=== PATIENT | female | born 1975 | race African-American/Black ===

== ENCOUNTER 2018-03-16 07:05 | Emergency (ER) | payer MEDICAID ==
[~2018-03-16] VITALS: Ht 162.6 cm; Wt 138.0 kg
[~2018-03-16 07:05] MED LIST: BUPR75TA3; HYDR12.529; METR500T; ZOLP5TAB2
[2018-03-16] MEDS ORDERED: MORPHINE SULFATE 4 MG/ML CPJ (NOT FOR IM USE) IV STA (08:26)
[2018-03-16] MEDS ORDERED: ONDANSETRON HCL 4MG/2ML VIAL IV STA (08:26)
[2018-03-16] MEDS ORDERED: ASPIRIN 81MG TABLET PO ONE (08:30)
[2018-03-16 08:51] LABS: BASOPHILS % 0.7 % (0.0-2.0); EOSINOPHILS % 1.4 % (0.0-5.0); HEMOGLOBIN. 11.5 g/dL (12.0-16.0); LYMPHOCYTES % 24.9 % (20.0-50.0); MEAN CORPUSCULAR HEMOGLOBIN 26.1 pg (28.0-32.0); MEAN CORPUSCULAR VOLUME 79.6 fL (81.0-99.0); MEAN PLATELET VOLUME 10.3 fl (7.4-10.4); MONOCYTES % 5.2 % (2.0-8.0); NEUTROPHILS % 67.8 % (40.0-76.0); PLATELET 231 x1000/uL (130-400)
[2018-03-16 08:56] LABS: CHLORIDE 104 mEq/L (98-107)
[2018-03-16 09:01] LABS: D-DIMER 0.26 mg/L FEU (<0.50); PROTHROMBIN TIME 10.6 sec (9.4-11.6)
[2018-03-16 09:08] LABS: HCG SCREEN NEGATIVE
[2018-03-16] MEDS ORDERED: IBUPROFEN 400MG TABLET PO ONE (12:00)
[2018-03-16 12:30] VITALS: BP 144/76
== END 2018-03-16 13:02 | disposition home or self-care (01) ==
LOC: ER 07:05
DX: R07.89 Other chest pain (principal); J45.909 Unspecified asthma, uncomplicated; I10 Essential (primary) hypertension; Z79.82 Long term (current) use of aspirin
CPT/HCPCS: 36415; 71045; 80053; 83880; 84484; 84703; 85025; 85379; 85610; 93005; 96374; 96375; 99285; J2270; J2405

== ENCOUNTER 2018-09-26 09:40 | Emergency (ER) | payer OTHER, MEDICAID ==
[~2018-09-26] VITALS: Ht 160 cm; Wt 114.0 kg
[2018-09-26] MEDS ORDERED: ALBUTEROL (0.5%) 2.5MG/0.5ML NEB HHN ONE ×2 (13:45→14:24)
[2018-09-26] MEDS ORDERED: IPRATROPIUM BROMIDE (0.02%) 0.5MG/2.5ML NEB HHN ONE (13:45)
[2018-09-26] MEDS ORDERED: PREDNISONE 20MG TABLET PO ONE (13:45)
[2018-09-26] MEDS ORDERED: IPRATROPIUM BROMIDE (0.02%) 0.5MG/2.5ML NEB ONE (14:24)
[2018-09-26 17:44] VITALS: BP 162/69
== END 2018-09-26 17:47 | disposition home or self-care (01) ==
LOC: ER 11:47
DX: J45.901 Unspecified asthma with (acute) exacerbation (principal); J06.9 Acute upper respiratory infection, unspecified
CPT/HCPCS: 71045; 81025; 93005; 94640; 99283; J7512; J7611

== ENCOUNTER 2020-06-25 08:12 | Emergency (ER) | payer OTHER, MEDICAID ==
[~2020-06-25] VITALS: Ht 162.6 cm; Wt 145.0 kg
[2020-06-25] MEDS ORDERED: ASPI-864 PO (08:23)
[2020-06-25] MEDS ORDERED: SODIUM CHLORIDE 0.9% 1,000 ML IV ONE (09:30)
[2020-06-25 10:00] LABS: BASOPHILS % 0.7 % (0.0-2.0); HEMATOCRIT. 32.8 % (36.0-48.0); HEMOGLOBIN. 10.7 g/dL (12.0-16.0); LYMPHOCYTES % 20.2 % (20.0-50.0); MEAN CORPUSCULAR HEMOGLOBIN 27.3 pg (28.0-32.0); MEAN CORPUSCULAR VOLUME 83.3 fL (81.0-99.0); MEAN PLATELET VOLUME 11.6 fl (7.4-10.4); MONOCYTES % 5.8 % (2.0-8.0); NEUTROPHILS % 72.3 % (40.0-76.0); PLATELET 196 x1000/uL (130-400); RED BLOOD CELL COUNT 3.93 mill/uL (4.2-5.4); RED CELL DISTRIBUTION WIDTH 14.3 % (11.6-14.6)
[2020-06-25 10:08] LABS: PROTHROMBIN TIME 10.5 sec (9.6-11.0)
[2020-06-25 10:15] LABS: CHLORIDE 107 mEq/L (98-107)
[2020-06-25 10:26] LABS: B-HCG QUANTITATIVE < 1 mIU/mL (<3)
[2020-06-25 12:09] LABS: CLARITY URINE CLOUDY (CLEAR); KETONES URINE NEGATIVE (NEGATIVE); LEUKOCYTE ESTERASE URINE TRACE (NEGATIVE); NITRITE URINE NEGATIVE (NEGATIVE); OCCULT BLOOD URINE 3+ (NEGATIVE); PH URINE 6.5 (4.5-8.0); PROTEIN URINE 2+ (NEGATIVE); SPECIFIC GRAVITY URINE 1.011 (1.005-1.030); UROBILINOGEN URINE 0.2 E.U./dL (0.2-1.0)
[2020-06-25 12:12] LABS: COLOR URINE BLOODY (YELLOW)
[2020-06-25 13:00] VITALS: BP 149/73
== END 2020-06-25 14:00 | disposition home or self-care (01) ==
LOC: ER 08:12
DX: D25.9 Leiomyoma of uterus, unspecified (principal); N83.201 Unspecified ovarian cyst, right side; I10 Essential (primary) hypertension; J45.909 Unspecified asthma, uncomplicated
CPT/HCPCS: 36415; 76830; 76856; 80053; 81003; 81025; 84702; 85025; 85610; 86850; 86900; 86901; 93005; 96360; 96361; 99285; J7030

== ENCOUNTER 2023-12-06 10:15 | Emergency (ER) | payer MEDICARE, MEDICAID ==
[~2023-12-06] VITALS: Ht 162.6 cm; Wt 137.0 kg
[~2023-12-06 10:15] MED LIST changes: -BUPR75TA3; +FURO20TA4 PO; +GABA-532 PO; +HYDR100T26 PO; -HYDR12.529; +LOSA100T33 PO; -METR500T; +OMEP20CA14 PO; -ZOLP5TAB2
[2023-12-06] MEDS ORDERED: METHYLPREDNISOLONE SOD SUCC 125MG/2ML (ACT-O-VIAL) IM STA (11:26)
[2023-12-06] MEDS ORDERED: ALBUTEROL (0.083%) 2.5MG/3ML NEB HHN STA (11:26)
[2023-12-06] MEDS ORDERED: IPRATROPIUM BROMIDE (0.02%) 0.5MG/2.5ML NEB HHN STA (11:26)
[2023-12-06 12:11] LABS: HEMATOCRIT. 36.8 % (36.0-48.0); HEMOGLOBIN. 11.8 g/dL (12.0-16.0); MEAN CORPUSCULAR HEMOGLOBIN 28.2 pg (28.0-32.0); MEAN CORPUSCULAR HGB CONC 32.1 g/dL (31.0-37.0); MEAN PLATELET VOLUME 10.4 fl (7.4-10.4); PLATELET 178 x1000/uL (130-400); RED BLOOD CELL COUNT 4.19 mill/uL (4.2-5.4); RED CELL DISTRIBUTION WIDTH 14.5 % (11.6-14.6)
[2023-12-06 12:17] LABS: DIFFERENTIAL COMMENT 1
[2023-12-06 12:30] LABS: ALANINE AMINOTRANSFERASE 8 IU/L (10-49); ALBUMIN 4.5 g/dL (3.2-4.8); ASPARTATE AMINOTRANSFERASE 22 IU/L (<34); BILIRUBIN TOTAL 0.5 mg/dL (0.1-1.0); CALCIUM 8.6 mg/dL (8.7-10.4); CARBON DIOXIDE 27 mEq/L (21-32); CHLORIDE 107 mEq/L (98-107); CREATININE 0.8 mg/dL (0.6-1.0); GLUCOSE 83 mg/dL (70-105); POTASSIUM 3.9 mEq/L (3.5-5.1); PROTEIN TOTAL 7.5 g/dL (6.0-8.3); SODIUM 139 mEq/L (136-145); UREA NITROGEN BLOOD 6 mg/dL (9-23)
[2023-12-06 13:04] LABS: PLATELET ESTIMATE NORMAL
[2023-12-06] MEDS: ACETAMINOPHEN 325MG TABLET PO NR (15:25)
[2023-12-06 15:26] VITALS: PULSE 93; RESP 20; O2SAT 97
[2023-12-06] MEDS: IPRATROPIUM BROMIDE (0.02%) 0.5MG/2.5ML NEB HHN NR (15:26)
[2023-12-06] MEDS: METHYLPREDNISOLONE SOD SUCC 125MG/2ML (ACT-O-VIAL) IM NR (15:26)
[2023-12-06] MEDS: ALBUTEROL (0.083%) 2.5MG/3ML NEB HHN NR (15:26)
[2023-12-06 15:43] LABS: CLARITY URINE CLOUDY (CLEAR); COLOR URINE RED (YELLOW); GLUCOSE URINE NEGATIVE (NEGATIVE); KETONES URINE NEGATIVE (NEGATIVE); LEUKOCYTE ESTERASE URINE 1+ (NEGATIVE); NITRITE URINE NEGATIVE (NEGATIVE); OCCULT BLOOD URINE 3+ (NEGATIVE); PROTEIN URINE 1+ (NEGATIVE); SPECIFIC GRAVITY URINE 1.024 (1.005-1.030)
[2023-12-06 15:58] LABS: BACTERIA URINE NONE SEEN; RBC URINE 50-100 /hpf (0-2); SQUAMOUS EPITHELIAL CELL URINE 1+ /lpf (RARE/1+); WBC URINE 0-2 /hpf (0-2)
[2023-12-06] MEDS: KETOROLAC 30MG/ML VIAL IM STA (17:00)
[2023-12-06 17:31] VITALS: BP 153/75; PULSE 82; RESP 18; TEMP 99.2
[2023-12-06] MEDS ORDERED: D-ME473S50 PO (17:34)
[2023-12-06] MEDS ORDERED: NAPR-681 MT (17:34)
[2023-12-06] MEDS ORDERED: ALBU18HF2 IH (17:34)
[2023-12-06] MEDS ORDERED: AZIT250T12 MT (17:34)
== END 2023-12-06 17:44 | disposition home or self-care (01) ==
LOC: ER 10:15
DX: J20.9 Acute bronchitis, unspecified (principal); J45.909 Unspecified asthma, uncomplicated; I10 Essential (primary) hypertension; Z20.822 Contact with and (suspected) exposure to COVID-19; Z88.8 Allergy status to other drugs, medicaments and biological substances; Z79.899 Other long term (current) drug therapy; Z98.890 Other specified postprocedural states
CPT/HCPCS: 99284; 71045; 87426; 80053; 81003; 81025; 83880; 85025; 87804 ×2; 36415; 94640; 96372; J1885; J2930

== ENCOUNTER 2023-12-10 07:21 | Inpatient (IN) | payer MEDICARE, MEDICAID ==
[~2023-12-10] VITALS: Ht 162.6 cm; Wt 142.4 kg
[~2023-12-10 07:21] MED LIST changes: +ALBU18HF2 IH; +AZIT250T12 MT; +D-ME473S50 PO; +NAPR-681 MT
[2023-12-10 08:52] VITALS: PULSE 65; RESP 15; O2SAT 99
[2023-12-10] MEDS: ALBUTEROL (0.083%) 2.5MG/3ML NEB HHN STA (08:52)
[2023-12-10] MEDS: IPRATROPIUM BROMIDE (0.02%) 0.5MG/2.5ML NEB HHN STA (08:52)
[2023-12-10 09:05] LABS: BASOPHILS % 0.3 % (0.0-2.0); EOSINOPHILS % 2.1 % (0.0-5.0); HEMATOCRIT. 35.3 % (36.0-48.0); HEMOGLOBIN. 11.5 g/dL (12.0-16.0); LYMPHOCYTES % 16.8 % (20.0-50.0); MEAN CORPUSCULAR HEMOGLOBIN 28.2 pg (28.0-32.0); MEAN CORPUSCULAR HGB CONC 32.7 g/dL (31.0-37.0); MEAN CORPUSCULAR VOLUME 86.2 fL (81.0-99.0); MEAN PLATELET VOLUME 10.1 fl (7.4-10.4); MONOCYTES % 6.6 % (2.0-8.0); NEUTROPHILS % 74.2 % (40.0-76.0); PLATELET 223 x1000/uL (130-400); RED BLOOD CELL COUNT 4.09 mill/uL (4.2-5.4); RED CELL DISTRIBUTION WIDTH 14.6 % (11.6-14.6); WHITE BLOOD COUNT 10.1 x1000/uL (4.5-11.0)
[2023-12-10 09:24] LABS: ALANINE AMINOTRANSFERASE < 7 IU/L (10-49); ALBUMIN 4.2 g/dL (3.2-4.8); ASPARTATE AMINOTRANSFERASE 15 IU/L (<34); BILIRUBIN TOTAL 0.3 mg/dL (0.1-1.0); CALCIUM 8.1 mg/dL (8.7-10.4); CARBON DIOXIDE 26 mEq/L (21-32); CHLORIDE 109 mEq/L (98-107); CREATININE 0.8 mg/dL (0.6-1.0); GLUCOSE 103 mg/dL (70-105); POTASSIUM 3.4 mEq/L (3.5-5.1); PROTEIN TOTAL 7.2 g/dL (6.0-8.3); SODIUM 141 mEq/L (136-145); UREA NITROGEN BLOOD 9 mg/dL (9-23)
[2023-12-10] MEDS: PREDNISONE 20MG TABLET PO STA (09:30)
[2023-12-10 09:33] LABS: TROPONIN I HIGH SENSITIVITY 59 ng/L (3.0-34)
[2023-12-10 10:21] LABS: TROPONIN I HIGH SENSITIVITY 53 ng/L (3.0-34)
[2023-12-10] MEDS: CEFTRIAXONE 1GM/50ML 50 ML IV ONE (12:33)
[2023-12-10] MEDS: CEFTRIAXONE 1GM/50ML 50 ML IV NR (12:51)
[2023-12-10] MEDS ORDERED: ONDANSETRON HCL 4MG/2ML INJ IV PRN (14:00)
[2023-12-10] MEDS ORDERED: ACETAMINOPHEN 325MG TABLET PO PRN (14:00)
[2023-12-10] MEDS: AZITHROMYCIN 500 MG TABLET PO NR (15:13)
[2023-12-10] MEDS: POTASSIUM CHLORIDE 20MEQ TABLET SR PO NR (15:13)
[2023-12-10 16:49] LABS: CLARITY URINE CLEAR (CLEAR); COLOR URINE YELLOW (YELLOW); GLUCOSE URINE NEGATIVE (NEGATIVE); KETONES URINE NEGATIVE (NEGATIVE); LEUKOCYTE ESTERASE URINE NEGATIVE (NEGATIVE); NITRITE URINE NEGATIVE (NEGATIVE); OCCULT BLOOD URINE 2+ (NEGATIVE); PH URINE 6.5 (4.5-8.0); PROTEIN URINE NEGATIVE (NEGATIVE); SPECIFIC GRAVITY URINE 1.014 (1.005-1.030)
[2023-12-10 16:57] LABS: BACTERIA URINE NONE SEEN; SQUAMOUS EPITHELIAL CELL URINE 1+ /lpf (RARE/1+); WBC URINE 0-2 /hpf (0-2)
[2023-12-10 20:54] VITALS: PULSE 66; RESP 18; O2SAT 97
[2023-12-10] MEDS: IPRATROPIUM/ALBUTEROL 0.5-3(2.5)MG/3ML NEB HHN SCH (20:54)
[2023-12-11] VITALS (11 sets, daily range): BP systolic 134–165; BP diastolic 60–85; PULSE 52–71; RESP 18–20; TEMP 97.5–98.6; O2SAT 96–97
[2023-12-11] MEDS ORDERED: OMEPRAZOLE 20MG CAPSULE EXTENDED RELEASE PO SCH (02:15)
[2023-12-11] MEDS ORDERED: CARVEDILOL 12.5MG TABLET PO SCH (02:15)
[2023-12-11] MEDS ORDERED: HYDRALAZINE HCL 100MG TABLET PO PRN (02:15)
[2023-12-11] MEDS ORDERED: LOSARTAN 100 MG TABLET PO SCH (02:15)
[2023-12-11] MEDS: LOSARTAN 100 MG TABLET PO NR (03:43)
[2023-12-11] MEDS: CARVEDILOL 12.5MG TABLET PO SCH ×2 (03:43→09:17)
[2023-12-11] MEDS ORDERED: CEFTRIAXONE 1GM/50ML 50 ML IV SCH (07:00)
[2023-12-11] MEDS ORDERED: MELA5TAB21 MT (07:03)
[2023-12-11] MEDS ORDERED: ASPI81TA43 MT (07:03)
[2023-12-11] MEDS ORDERED: TRAZ-251 PO (07:03)
[2023-12-11] MEDS ORDERED: FLUT1BLS3 INH (07:03)
[2023-12-11] MEDS ORDERED: COR25 PO (07:03)
[2023-12-11] MEDS ORDERED: MIRA25TA PO (07:03)
[2023-12-11] MEDS ORDERED: BUSP30TA2 PO (07:03)
[2023-12-11] MEDS ORDERED: BENZ100C86 PO (07:03)
[2023-12-11] MEDS ORDERED: SERT100T PO (07:03)
[2023-12-11] MEDS ORDERED: B CM1TAB PO (07:03)
[2023-12-11 08:45] LABS: BASOPHILS % 0.4 % (0.0-2.0); EOSINOPHILS % 1.8 % (0.0-5.0); HEMOGLOBIN. 10.8 g/dL (12.0-16.0); LYMPHOCYTES % 28.7 % (20.0-50.0); MEAN CORPUSCULAR HEMOGLOBIN 28.5 pg (28.0-32.0); MEAN CORPUSCULAR HGB CONC 32.6 g/dL (31.0-37.0); MEAN CORPUSCULAR VOLUME 87.4 fL (81.0-99.0); MEAN PLATELET VOLUME 10.4 fl (7.4-10.4); MONOCYTES % 7.5 % (2.0-8.0); NEUTROPHILS % 61.6 % (40.0-76.0); PLATELET 203 x1000/uL (130-400); RED BLOOD CELL COUNT 3.78 mill/uL (4.2-5.4); RED CELL DISTRIBUTION WIDTH 14.7 % (11.6-14.6); WHITE BLOOD COUNT 9.1 x1000/uL (4.5-11.0)
[2023-12-11 08:48] LABS: CALCIUM 8.5 mg/dL (8.7-10.4); CARBON DIOXIDE 26 mEq/L (21-32); CHLORIDE 108 mEq/L (98-107); CREATININE 0.8 mg/dL (0.6-1.0); GLUCOSE 144 mg/dL (70-105); POTASSIUM 3.5 mEq/L (3.5-5.1); SODIUM 142 mEq/L (136-145); UREA NITROGEN BLOOD 11 mg/dL (9-23)
[2023-12-11] MEDS: OMEPRAZOLE 20MG CAPSULE EXTENDED RELEASE PO SCH (09:15)
[2023-12-11] MEDS: AZITHROMYCIN 250 MG TABLET PO SCH (09:15)
[2023-12-11] MEDS: LOSARTAN 100 MG TABLET PO SCH (09:16)
[2023-12-11] MEDS: HYDRALAZINE HCL 100MG TABLET PO SCH (09:17)
[2023-12-11] MEDS: CEFTRIAXONE 1GM/50ML 50 ML IV SCH (11:59)
[2023-12-12] VITALS (11 sets, daily range): BP systolic 131–166; BP diastolic 69–85; PULSE 54–84; RESP 18–22; TEMP 97.4–98.8; O2SAT 97
[2023-12-12] MEDS: SERTRALINE HCL 100MG TABLET PO SCH (11:07)
[2023-12-12] MEDS: BUSPIRONE HCL 10MG TABLET PO SCH (12:44)
[2023-12-12] MEDS ORDERED: IPRATROPIUM/ALBUTEROL 0.5-3(2.5)MG/3ML NEB HHN PRN (16:15)
[2023-12-12] MEDS: EPLERENONE 25 MG PO SCH (17:16)
[2023-12-12] MEDS: TRAZODONE HCL 50MG TABLET PO SCH (21:02)
[2023-12-12] MEDS: METHYLPREDNISOLONE SOD SUCC 125MG/2ML (ACT-O-VIAL) IV SCH (22:01)
[2023-12-13] VITALS (10 sets, daily range): BP systolic 125–176; BP diastolic 76–92; PULSE 65–89; RESP 4–24; TEMP 97.8–98.7; O2SAT 96–97
[2023-12-13] MEDS ORDERED: HYDRALAZINE HCL 10MG TABLET PO PRN (06:15)
[2023-12-13 06:18] LABS: BASOPHILS % 0.2 % (0.0-2.0); EOSINOPHILS % 0.1 % (0.0-5.0); HEMATOCRIT. 35.9 % (36.0-48.0); LYMPHOCYTES % 12.1 % (20.0-50.0); MEAN CORPUSCULAR HEMOGLOBIN 28.7 pg (28.0-32.0); MEAN CORPUSCULAR HGB CONC 33.4 g/dL (31.0-37.0); MEAN CORPUSCULAR VOLUME 86.1 fL (81.0-99.0); MEAN PLATELET VOLUME 9.9 fl (7.4-10.4); NEUTROPHILS % 86.6 % (40.0-76.0); PLATELET 275 x1000/uL (130-400); RED BLOOD CELL COUNT 4.16 mill/uL (4.2-5.4); RED CELL DISTRIBUTION WIDTH 14.4 % (11.6-14.6); WHITE BLOOD COUNT 10.1 x1000/uL (4.5-11.0)
[2023-12-13 06:38] LABS: CALCIUM 8.7 mg/dL (8.7-10.4); CARBON DIOXIDE 26 mEq/L (21-32); CHLORIDE 104 mEq/L (98-107); CREATININE 0.8 mg/dL (0.6-1.0); GLUCOSE 171 mg/dL (70-105); PHOSPHORUS 4.1 mg/dL (2.5-4.9); POTASSIUM 4.1 mEq/L (3.5-5.1); SODIUM 138 mEq/L (136-145); UREA NITROGEN BLOOD 8 mg/dL (9-23)
[2023-12-13 09:10] LABS: BG BASE EXCESS 1.3 mmol/L (-2.0-2.0); BG CARBOXYHEMOGLOBIN 0.3 % (0.5-1.5); BG DEOXYHEMOGLOBIN 4.1 % (0.0-5.0); BG FRACTION INSPIRED OXYGEN 28; BG HCO3 ACT 25.6 mmol/L (22.0-26.0); BG METHEMOGLOBIN 0.3 % (0.0-1.5); BG OXYGEN SATURATION 95.9 % (92.0-98.5); BG OXYHEMOGLOBIN 95.3 % (94.0-97.0); BG PCO2 39.3 mmHg (35.0-45.0); BG PH 7.431 (7.350-7.450); BG PO2 80.9 mmHg (75.0-100.0); BG SAMPLE SITE RIGHT BRACHIAL; BG TOTAL HEMOGLOBIN 13.1 g/dL (12.0-18.0); BG VENT MODE NASAL CANNULA
[2023-12-13] MEDS: FAMOTIDINE 20MG TABLET PO SCH (10:31)
[2023-12-13] MEDS: NIFEDIPINE XL 30MG TAB PO SCH (14:21)
[2023-12-13 18:19] LABS: BG CARBOXYHEMOGLOBIN 0.1 % (0.5-1.5); BG DEOXYHEMOGLOBIN 7.1 % (0.0-5.0); BG FRACTION INSPIRED OXYGEN 21; BG HCO3 ACT 26.5 mmol/L (22.0-26.0); BG METHEMOGLOBIN 0.2 % (0.0-1.5); BG OXYGEN SATURATION 92.9 % (92.0-98.5); BG OXYHEMOGLOBIN 92.6 % (94.0-97.0); BG PH 7.428 (7.350-7.450); BG PO2 66.7 mmHg (75.0-100.0); BG SAMPLE SITE LEFT BRACHIAL; BG TOTAL HEMOGLOBIN 13.1 g/dL (12.0-18.0); BG VENT MODE ROOM AIR
[2023-12-14] VITALS (11 sets, daily range): BP systolic 133–169; BP diastolic 67–86; PULSE 61–84; RESP 18–27; TEMP 97–98.7
[2023-12-15] VITALS (8 sets, daily range): BP systolic 124–139; BP diastolic 65–70; PULSE 68–95; RESP 16–20; TEMP 97–97.7; O2SAT 93
[2023-12-15] MEDS ORDERED: NIFE-33 PO (13:34)
[2023-12-15] MEDS ORDERED: P20 MT (13:34)
[2023-12-15] MEDS ORDERED: LEVO750T68 MT (13:35)
[2023-12-15] MEDS: HYDRALAZINE HCL 10MG TABLET PO PRN (15:01)
== END 2023-12-15 18:14 | disposition home or self-care (01) | DRG 193 ==
LOC: ER 07:21 → EDBEDREQ 08:51 → EDBEDREQTM 10:36 → EDBEDREQ 10:36 → 5WST 23:00 → 7WST 12-11 04:41
PROVIDERS: ADMIT Internal Medicine; ATTEND Internal Medicine
PROC: 5A09357 Assistance with Respiratory Ventilation, Less than 24 Consecutive Hours, Continuous Positive Airway Pressure (ICD-10-PCS; principal; 2023-12-14)
PROC: 5A09357 Assistance with Respiratory Ventilation, Less than 24 Consecutive Hours, Continuous Positive Airway Pressure (ICD-10-PCS; 2023-12-15)
DX: J18.9 Pneumonia, unspecified organism (principal); J96.00 Acute respiratory failure, unspecified whether with hypoxia or hypercapnia; I43 Cardiomyopathy in diseases classified elsewhere; E85.4 Organ-limited amyloidosis; Z68.43 Body mass index [BMI] 50.0-59.9, adult; I11.0 Hypertensive heart disease with heart failure; I50.9 Heart failure, unspecified; E66.9 Obesity, unspecified; E87.6 Hypokalemia; Z88.8 Allergy status to other drugs, medicaments and biological substances; Z79.899 Other long term (current) drug therapy
CPT/HCPCS: 36415; 36600; 71045; 80048; 80053; 81003; 82375; 82805; 83036; 83735; 83880; 84100; 84145; 84484; 85025; 85379; 93005; 94618; 94640; 94660; 99291; J0696; J2405; J2930; J7512

== ENCOUNTER 2024-07-31 09:56 | Emergency (ER) | payer MEDICARE, MEDICAID ==
[~2024-07-31] VITALS: Ht 162.6 cm; Wt 133.0 kg
[~2024-07-31 09:56] MED LIST changes: +ASPI81TA43 MT; -AZIT250T12 MT; +B CM1TAB PO; +BENZ100C86 PO; +BUSP30TA2 PO; +COR25 PO; +FLUT1BLS3 INH; +GABA-1180 PO; -GABA-532 PO; +HYDR100T11 PO; -HYDR100T26 PO; +LEVO750T68 MT; +MELA5TAB21 MT; +MIRA25TA PO; +NIFE-33 PO; +P20 MT; +SERT100T PO; +TRAZ-251 PO
[2024-07-31 10:12] VITALS: BP 131/59
[2024-07-31 11:07] LABS: BASOPHILS % 0.4 % (0.0-2.0); EOSINOPHILS % 1.1 % (0.0-5.0); HEMATOCRIT. 32.9 % (36.0-48.0); HEMOGLOBIN. 10.5 g/dL (12.0-16.0); LYMPHOCYTES % 16.3 % (20.0-50.0); MEAN CORPUSCULAR HEMOGLOBIN 26.7 pg (28.0-32.0); MEAN CORPUSCULAR HGB CONC 31.9 g/dL (31.0-37.0); MEAN CORPUSCULAR VOLUME 83.6 fL (81.0-99.0); MONOCYTES % 6.9 % (2.0-8.0); NEUTROPHILS % 75.3 % (40.0-76.0); PLATELET 291 x1000/uL (130-400); RED BLOOD CELL COUNT 3.94 mill/uL (4.2-5.4); RED CELL DISTRIBUTION WIDTH 14.6 % (11.6-14.6); WHITE BLOOD COUNT 14.2 x1000/uL (4.5-11.0)
[2024-07-31 11:13] LABS: CHLORIDE 106 mEq/L (98-107); POTASSIUM 3.8 mEq/L (3.5-5.1); SODIUM 140 mEq/L (136-145)
[2024-07-31 11:14] LABS: CALCIUM 8.9 mg/dL (8.7-10.4); CARBON DIOXIDE 28 mEq/L (21-32)
[2024-07-31 11:19] LABS: CREATININE 0.8 mg/dL (0.6-1.0); GLUCOSE 99 mg/dL (70-105); UREA NITROGEN BLOOD 7 mg/dL (9-23)
[2024-07-31 11:20] LABS: TROPONIN I HIGH SENSITIVITY 28 ng/L (3.0-34)
[2024-07-31] MEDS: PREDNISONE 20MG TABLET PO ONE (11:45)
[2024-07-31 12:10] VITALS: PULSE 71; RESP 19; O2SAT 99
[2024-07-31] MEDS: IPRATROPIUM BROMIDE (0.02%) 0.5MG/2.5ML NEB HHN ONE (12:10)
[2024-07-31] MEDS: ALBUTEROL (0.5%) 2.5MG/0.5ML NEB HHN ONE (12:11)
[2024-07-31] MEDS ORDERED: P20 MT (12:59)
[2024-07-31 13:20] VITALS: PULSE 70; RESP 18; TEMP 37.11408; O2SAT 99
== END 2024-07-31 13:07 | disposition home or self-care (01) ==
LOC: ER 09:56
DX: J45.901 Unspecified asthma with (acute) exacerbation (principal); I51.9 Heart disease, unspecified; Z79.899 Other long term (current) drug therapy; Z88.8 Allergy status to other drugs, medicaments and biological substances; Z79.82 Long term (current) use of aspirin; Z98.890 Other specified postprocedural states
CPT/HCPCS: 99285; 71045; 80048; 83880; 85025; 84484; 36415; 94640; 93005; J7512

== ENCOUNTER 2024-09-06 12:53 | Emergency (ER) | payer MEDICARE, MEDICAID ==
[~2024-09-06] VITALS: Ht 162.6 cm; Wt 131.0 kg
[2024-09-06 13:20] VITALS: O2SAT 98
[2024-09-06 14:47] LABS: CHLORIDE 106 mEq/L (98-107); SODIUM 140 mEq/L (136-145)
[2024-09-06 14:48] LABS: CALCIUM 9.2 mg/dL (8.7-10.4); CARBON DIOXIDE 27 mEq/L (21-32)
[2024-09-06 14:53] LABS: CREATININE 1.1 mg/dL (0.6-1.0); GLUCOSE 89 mg/dL (70-105); UREA NITROGEN BLOOD 9 mg/dL (9-23)
[2024-09-06 15:33] LABS: BASOPHILS % 0.9 % (0.0-2.0); EOSINOPHILS % 1.7 % (0.0-5.0); HEMATOCRIT. 34.5 % (36.0-48.0); HEMOGLOBIN. 11.2 g/dL (12.0-16.0); LYMPHOCYTES % 18.8 % (20.0-50.0); MEAN CORPUSCULAR HEMOGLOBIN 27.2 pg (28.0-32.0); MEAN CORPUSCULAR HGB CONC 32.6 g/dL (31.0-37.0); MEAN CORPUSCULAR VOLUME 83.4 fL (81.0-99.0); MEAN PLATELET VOLUME 10.3 fl (7.4-10.4); MONOCYTES % 14.1 % (2.0-8.0); NEUTROPHILS % 64.5 % (40.0-76.0); PLATELET 224 x1000/uL (130-400); RED BLOOD CELL COUNT 4.13 mill/uL (4.2-5.4); RED CELL DISTRIBUTION WIDTH 14.9 % (11.6-14.6); WHITE BLOOD COUNT 8.2 x1000/uL (4.5-11.0)
[2024-09-06] MEDS: ACETAMINOPHEN 325MG TABLET PO ONE (19:45)
[2024-09-06] MEDS: IBUPROFEN 800MG TABLET PO ONE (19:45)
[2024-09-06] MEDS ORDERED: IBUP-1525 MT (21:43)
[2024-09-06] MEDS ORDERED: D-ME473S50 PO (21:43)
[2024-09-06] MEDS ORDERED: AZIT250T12 MT (21:43)
[2024-09-06] MEDS ORDERED: TOPUD MT (21:43)
[2024-09-06 21:55] VITALS: BP 129/75; PULSE 82; RESP 18; TEMP 37.11408; O2SAT 100
== END 2024-09-06 22:15 | disposition home or self-care (01) ==
LOC: ER 12:53
DX: J20.9 Acute bronchitis, unspecified (principal); J45.909 Unspecified asthma, uncomplicated; Z88.8 Allergy status to other drugs, medicaments and biological substances; Z87.01 Personal history of pneumonia (recurrent); Z79.899 Other long term (current) drug therapy; Z79.82 Long term (current) use of aspirin; Z79.1 Long term (current) use of non-steroidal anti-inflammatories (NSAID); Z20.822 Contact with and (suspected) exposure to COVID-19
CPT/HCPCS: 36415; 71045; 80048; 85025; 87426; 87804; 93005; 99285